=== PATIENT | female | born 1955 | race Caucasian/White ===

== ENCOUNTER 2019-06-05 14:09 | Outpatient (CLI) | payer BC | END 2019-06-05 14:10 | disposition home or self-care (01) | LOC: CTENTCT 14:09 | PROVIDERS: ATTEND Otolaryngology Plastic Surgery within the Head & Neck | DX: J01.91 Acute recurrent sinusitis, unspecified (principal) | CPT/HCPCS: 70486 ==

== ENCOUNTER 2019-06-16 06:29 | Outpatient (CLI) | payer BC, OTHER ==
[2019-06-16 14:36] LABS: Anion Gap 17 mmol/L (10-20); BUN (Urea Nitrogen) 20 mg/dL (9.8-20.1); Calc. Creatinine Clearance 0 mL/min (70-130); Calcium 10.4 mg/dL (7.8-10.44); Carbon Dioxide 23 mmol/L (23-31); Chloride 101 mmol/L (98-107); Estimated GFR-MDRD 70; Glucose 66 mg/dL (80-115); Potassium 3.7 mmol/L (3.5-5.1); Sodium 137 mmol/L (136-145)
--- NOTE | 2019-06-16 16:16 | EKG ---
Test Reason : Blood Pressure : / mmHG Vent. Rate : 057 BPM Atrial Rate : 057 BPM P-R Int : 146 ms QRS Dur : 092 ms QT Int : 428 ms P-R-T Axes : 059 047 064 degrees QTc Int : 416 ms Sinus bradycardia Normal ECG No previous ECGs available Confirmed by AMANDA HUGGINS, DR. Markham ([id number]) on 06/16/2019 4:15:52 PM Referred By: CHRISTOPH Confirmed By:DR. Shahrzad PATEL MD
[2019-06-17 11:31] LABS: SARS-CoV-2 MS2 Positive; SARS-CoV-2 N Gene Negative; SARS-CoV-2 S Gene Negative; SARS-CoV-2 orf1ab Negative
== END 2019-06-16 06:30 | disposition home or self-care (01) ==
LOC: LABBT 06:29
PROVIDERS: ATTEND Otolaryngology Plastic Surgery within the Head & Neck
DX: Z01.818 Encounter for other preprocedural examination (principal); Z11.59 Encounter for screening for other viral diseases; J35.01 Chronic tonsillitis; J34.2 Deviated nasal septum; J34.3 Hypertrophy of nasal turbinates; J32.0 Chronic maxillary sinusitis; J32.2 Chronic ethmoidal sinusitis; K13.79 Other lesions of oral mucosa; J01.91 Acute recurrent sinusitis, unspecified
CPT/HCPCS: 80048; 85014; 87635; 93005; 93010; U0003

== ENCOUNTER 2019-06-18 06:31 | Day surgery (SDC) | payer BC ==
[2019-06-16 12:21] VITALS: BMI 24.9
[2019-06-18] MEDS ORDERED: AFRIN NASAL MIST 15 ML BOT ONE ×2 (08:06→08:32)
[2019-06-18] MEDS ORDERED: Lidocaine 1% w/Epinephrine 1:100K 20 ML VIAL ONE (08:31)
[2019-06-18] MEDS ORDERED: Bacitracin Zinc Ointment 30 gm TUBE ONE (08:32)
[2019-06-18] MEDS ORDERED: Midazolam HCl 2 mg/2 ml Vial ONE (08:36)
[2019-06-18] MEDS ORDERED: Fentanyl 100 MCG/2 ML VIAL ONE ×3 (08:36→10:58)
[2019-06-18] MEDS ORDERED: methylPREDNISolone Acetate 40 mg/ml Vial ONE (09:08)
[2019-06-18] MEDS ORDERED: EPHEDRINE 25 MG/5 ML SYRINGE ONE (11:17)
[2019-06-18] MEDS ORDERED: Lidocaine 1% PF 5 ML VIAL ONE (11:17)
[2019-06-18] MEDS ORDERED: Dexamethasone 20 MG/5 ML VIAL ONE (11:17)
[2019-06-18] MEDS ORDERED: PROPOFOL 200 MG/20 ML VIAL ONE (11:17)
[2019-06-18] MEDS ORDERED: Ondansetron PF 4 MG/2 ML Vial ONE (11:17)
[2019-06-18] MEDS ORDERED: Hydrocodone-Acetamin 15 ML UDCUP ONE (12:59)
--- NOTE | 2019-06-19 06:51 | OP ---
DATE OF PROCEDURE: 06/18/2019 PREOPERATIVE DIAGNOSES: 1. Chronic rhinosinusitis. 2. Nasal septal deviation. 3. Bilateral inferior turbinate hypertrophy. 4. Nasal obstruction. 5. Bilateral dynamic nasal valve collapse. 6. Adenotonsillar hypertrophy. 7. Chronic adenotonsillitis. 8. Uvula hypertrophy. 9. Obstructive sleep apnea. POSTOPERATIVE DIAGNOSES: 1. Chronic rhinosinusitis. 2. Nasal septal deviation. 3. Bilateral inferior turbinate hypertrophy. 4. Nasal obstruction. 5. Bilateral dynamic nasal valve collapse. 6. Adenotonsillar hypertrophy. 7. Chronic adenotonsillitis. 8. Uvula hypertrophy. 9. Obstructive sleep apnea. PROCEDURES PERFORMED: 1. Bilateral endoscopic sinus surgery, total ethmoidectomy with sphenoidotomies including removal of tissue, bilateral. 2. Bilateral endoscopic sinus surgery, frontal sinusotomy exploration. 3. Bilateral endoscopic sinus surgery, maxillary antrostomy. 4. Nasal septoplasty. 5. Bilateral inferior turbinate submucosal resection. 6. Bilateral repair of lateral nasal wall defect. 7. Tonsillectomy and adenoidectomy. 8. Uvulectomy. ESTIMATED BLOOD LOSS: 20 mL. COMPLICATIONS: None. ANESTHESIA: GETA. PROCEDURE IN DETAIL: After consent was obtained, the patient was identified, brought to the operating room, and placed on the operating table in the supine position. General endotracheal anesthesia and intravenous access was obtained and we proceeded with positioning the patient for oropharyngeal surgery. Oropharyngeal exposure was obtained with a Luis Angel-Carlos mouth gag after a head drape was placed and secured with a towel clip. The Luis Angel-Carlos mouth gag was then suspended from the Sommer tray and palatal elevation was achieved with a red rubber catheter. The right tonsil was addressed first. We used a curved Allis to grasp the tonsil and retract it medially as an anterior pillar incision was made. The retrotonsillar fascial plane was then established and blunt dissection was performed with the suction cautery. Blood vessels were anticipated, identified, and cauterized as they were encountered. Ultimately, dissection was carried to the posterior tonsillar pillar mucosa which was incised hemostatically, as well as the base of tongue connection. The tonsil was then passed off as a specimen and bleeding points within the tonsillar bed were cauterized under direct visualization. We subsequently turned our attention to the contralateral side, where using a similar technique, a near identical procedure was performed. Again, the tonsil was grasped and retracted medially with a curved Allis. The retrotonsillar fascial plane was established and while the anterior pillar was retracted medially, the hemostatic blunt dissection of the tonsil with a suction cautery was performed with blood vessels anticipated, identified, and cauterized as they were encountered. Again, dissection continued to the base of tongue and posterior tonsillar pillar mucosa which was incised in a hemostatic fashion. The tonsillar beds were then carefully inspected and bleeding points were identified and cauterized with a suction cautery. After this portion of the procedure, hemostasis was completely obtained. Under direct mirror visualization, we visualized the adenoid pad. Under direct mirror visualization, we removed the bulk of the adenoid tissue with the adenoid curette. We then packed the nasopharynx for an appropriate period of time with Martell-Synephrine saturated tonsillar sponges. After a period of observation, we removed the pack. Under indirect mirror visualization, we obtained hemostasis and vaporization of residual adenoid tissue with electrocautery. The patient's oral cavity was copiously irrigated with iced saline and subsequently suctioned. After completion of the procedure, the nasal cavity and oropharynx were irrigated and suctioned as were the gastric contents. The patient was then awakened and transferred to the recovery room where the patient remained in stable condition prior to discharge to Day Stay. Following this, the excessive portions of the uvula were then trimmed using the Bovie electrocautery. Hemostasis was obtained and cool saline was irrigated through the oral cavity and suctioned. Following this, the patient was then placed in the beach-chair position. The patient was taken to the operating room and placed supine on the table. General endotracheal anesthesia was obtained by the anesthesia staff. Then 1% lidocaine with 1:100,000 epinephrine was injected into the nasal septum as well as the inferior turbinates. The patient was prepped and draped in standard surgical fashion. The Afrin pledgets were then removed. A Akira incision was made on the left nasal septum. Submucoperichondrial dissection was performed bilaterally of the deviated portions of the septum, which included the maxillary crest and the crest deviation, as well as the mid portion of the septum. Cartilage and bony deviation was removed, leaving a generous caudal and dorsal strut. Any straight pieces of cartilage were then placed within the cartilage press, pressed, straightened, and then placed between the mucoperichondrial flaps, which were then closed using a 4-0 gut stitch. The inferior turbinates were then punctured with the submucosal Coblation machine, and 3 separate coblations were delivered to the anterior inferior portion of the inferior turbinates. Following this, the nasal cavity was irrigated. All debris was removed. An orogastric tube was placed. Gastric contents and Blackburn splints were then placed in the nasal cavity and sutured with a 3-0 silk stitch. Following this, the 0-degree endoscope was advanced into the middle turbinate. The left middle turbinate had a large hattie bullosa deformity present. A sickle knife was used to make a vertical incision in the middle turbinate and the lateral wall of the hattie bullosa was removed endoscopically using the 0-degree Blakesley forceps and the 0-degree microdebrider. Following this, the remnant of the middle turbinate on the left and the intact middle turbinate on the right was medialized exposing the uncinate process bilaterally. The uncinate process was then anteriorly fractured using a ball-ended probe and was removed using the straight 0-degree microdebrider and up-biting Blakesley forceps. Following this, the natural maxillary sinus ostia was identified and was gently widened with a ball-ended probe and straight Blakesley forceps. The 40-degree microdebrider was then used to also further open the maxillary ostia bilaterally. Following this, the ethmoidal bulla was identified bilaterally and was punctured on its medial and inferior aspect using the 0-degree microdebrider and was removed. Following this, the grand lamella was identified and was punctured into the posterior ethmoidal cells with the 0-degree microdebrider. Working from posterior to anterior, the ethmoidal cells were opened in a mucosal sparing technique. Following this, the anterior wall of the sphenoid sinus was identified and was punctured with a Ulrich tip suction bilaterally. Following this, the sphenoidotomies were widened with the 0-degree microdebrider in a medial and inferior direction. Polypoid mucosa and excessive bone fragments were removed from the sphenoid sinus area. Following this, the 45-degree endoscope along with a 40-degree microdebrider blade was used to visualize the frontal sinus ostia and frontal recess area. These areas were widened and opened using the 40-degree microdebrider and the up-biting Blakesley forceps bilaterally. Following this, the nasal cavity was irrigated. NasoPore was placed within the middle meatus bilaterally. Blackburn splints were placed and secured. Following this, the intranasal incision was made in a transcartilaginous fashion. A small piece of cartilage harvested from the nasal septum was set in an onlay fashion in order to help support the significant lateral wall collapse that was present of bilateral nasal valves. This incision was then closed with a 5-0 chromic gut stitch. The patient tolerated the procedure well. Job ID: [id number]
== END 2019-06-18 14:10 | disposition home or self-care (01) ==
LOC: SDC 06:31
PROVIDERS: ATTEND Otolaryngology Plastic Surgery within the Head & Neck
PROC: 099R8ZZ Drainage of Left Maxillary Sinus, Via Natural or Artificial Opening Endoscopic (ICD-10-PCS; principal; 2019-06-18)
PROC: 09BL8ZZ Excision of Nasal Turbinate, Via Natural or Artificial Opening Endoscopic (ICD-10-PCS; principal; 2019-06-18)
PROC: 0CTNXZZ Resection of Uvula, External Approach (ICD-10-PCS; principal; 2019-06-18)
PROC: 099Q8ZZ Drainage of Right Maxillary Sinus, Via Natural or Artificial Opening Endoscopic (ICD-10-PCS; principal; 2019-06-18)
PROC: 0CTQXZZ Resection of Adenoids, External Approach (ICD-10-PCS; principal; 2019-06-18)
PROC: 09BS8ZZ Excision of Right Frontal Sinus, Via Natural or Artificial Opening Endoscopic (ICD-10-PCS; principal; 2019-06-18)
PROC: 09BT8ZZ Excision of Left Frontal Sinus, Via Natural or Artificial Opening Endoscopic (ICD-10-PCS; principal; 2019-06-18)
PROC: 0CTPXZZ Resection of Tonsils, External Approach (ICD-10-PCS; principal; 2019-06-18)
DX: J35.03 Chronic tonsillitis and adenoiditis (principal); J34.2 Deviated nasal septum; J34.3 Hypertrophy of nasal turbinates; G47.33 Obstructive sleep apnea (adult) (pediatric); J32.9 Chronic sinusitis, unspecified; K13.79 Other lesions of oral mucosa; J34.89 Other specified disorders of nose and nasal sinuses
CPT/HCPCS: 88304; J1100; J2001; J2250; J2405; J2704; J2960; J3010

== ENCOUNTER 2020-03-10 18:13 | Emergency (ER) | payer BC ==
--- NOTE | 2020-03-10 20:36 | CT ---
EXAM: CT Sinuses WO Con PROVIDED CLINICAL HISTORY: Clear fluid coming out of nose. History of prior sinus surgery. Concern for CSF leak. COMPARISON: 06/05/2019 obtained from [facility]. FINDINGS: There are findings suggestive of bilateral partial ethmoidectomy and medial wall antrectomy. This is an interval change compared to prior study. Air-fluid level is present in the left maxillary antrum. Mild mucosal thickening is seen in the left maxillary antrum and involving the right sphenoid sinus and in a few remaining ethmoidal air cells. Slight increased density is seen within the air-fluid level in the left maxillary antrum which could be related to inspissated secretions. Mastoid air cells are clear. Orbits are normal and symmetric in appearance bilaterally. Osseous structures have a normal appearance. IMPRESSION: 1. Evidence of prior sinus surgery. 2. Mucosal again scattered within the paranasal sinuses with small air-fluid level in the left maxill ralph antrum. 3. CSF leak is unable to be evaluated or excluded based on this examination.
== END 2020-03-10 21:15 | disposition home or self-care (01) ==
LOC: ERS 18:13
DX: J34.89 Other specified disorders of nose and nasal sinuses (principal); I10 Essential (primary) hypertension; Z79.899 Other long term (current) drug therapy
CPT/HCPCS: 86335

== ENCOUNTER 2025-01-13 09:04 | Outpatient (CLI) | payer MEDICARE, BC | END 2025-01-13 09:05 | disposition home or self-care (01) | LOC: NM 09:04 | PROVIDERS: ATTEND Specialist | DX: Z47.1 Aftercare following joint replacement surgery (principal); T84.84XA Pain due to internal orthopedic prosthetic devices, implants and grafts, initial encounter; Z96.652 Presence of left artificial knee joint | CPT/HCPCS: 78315; A9503 ==